=== PATIENT | female | born 1990 | race African-American/Black ===

== ENCOUNTER 2016-11-15 09:39 | Emergency (ER) | payer SELFPAY ==
--- NOTE | 2016-11-15 10:40 | ER Document Report ---
HPI - HPI Patient complains to provider of: cough, congestion Onset: Other - several days Onset/Duration: Gradual Quality of pain: Achy Pain Level: 4 Context: 25 yo female with cough, congestion, bodyaches for several days. NO fever or chills. No chest pain or SOB. Associated Symptoms: None Exacerbated by: Denies Relieved by: Denies Similar symptoms previously: Yes Recently seen / treated by doctor: No - ROS ROS below otherwise negative: Yes Systems Reviewed and Negative: Yes All other systems reviewed and negative - CARDIOVASCULAR Cardiovascular: DENIES: Chest pain - REPRODUCTIVE Reproductive: DENIES: : - DERM Skin Color: Normal Past Medical History - General Information source: Patient - Social History Smoking Status: Never Smoker Chew tobacco use (# tins/day): No Frequency of alcohol use: None Drug Abuse: None Lives with: Family Family History: Reviewed & Not Pertinent Patient has suicidal ideation: No Patient has homicidal ideation: No Renal/ Medical History: Denies: Hx Peritoneal Dialysis GI Medical History: Reports: Hx Gastroesophageal Reflux Disease - ON MEDICATION , NAME AND DOSE UNKNOWN Past Surgical History: Reports: Hx Section - Immunizations Immunizations up to date: Yes Hx Diphtheria, Pertussis, Tetanus Vaccination: Yes Vertical Provider Document - CONSTITUTIONAL Agree With Documented VS: Yes Exam Limitations: No Limitations General Appearance: No Apparent Distress - INFECTION CONTROL TRAVEL OUTSIDE OF THE [place] IN LAST 30 DAYS: No - HEENT HEENT: Conjuctival Injection, Pharyngeal Erythema. negative: Tympanic Membrane Red - NECK Neck: Supple. negative: Lymphadenopathy-Left, Lymphadenopathy-Right - RESPIRATORY Respiratory: Breath Sounds Normal, No Respiratory Distress O2 Sat by Pulse Oximetry: 98 - CARDIOVASCULAR Cardiovascular: Regular Rate, Regular Rhythm - GI/ABDOMEN Gastrointestinal: Abdomen Soft, Abdomen Non-Tender - MUSCULOSKELETAL/EXTREMETIES Musculoskeletal/Extremeties: MAEW, FROM - NEURO Level of Consciousness: Awake, Alert, Appropriate - DERM Integumentary: Warm, Dry, No Rash Course - Vital Signs Vital signs: Temp Pulse Resp BP Pulse Ox 97.9 F 91 16 140/94 H 98 11/15/16 10:28 11/15/16 10:28 11/15/16 10:28 11/15/16 10:28 11/15/16 10:28 Discharge - Discharge Clinical Impression: Upper respiratory infection Qualifiers: URI type: unspecified viral URI Qualified Code(s): J06.9 - Acute upper respiratory infection, unspecified Condition: Good Disposition: HOME, SELF-CARE Instructions: Sore Throat ([facility]), Upper Respiratory Illness ([facility]) Additional Instructions: Plenty of fluids Rest Rapid strep is pending call me at [phone] in one hour for the result. If the strep is positive I can call in a penicillin prescription for you. Please complete the patient satisfaction survey if you get one, and return it.. If you do not receive a survey, then you can go to the [facility] website, [email or web address] and place your comments about your very good care. Thank you very much. It was a pleasure being your medical provider today. Forms: Return to Work
[2016-11-15 10:53] VITALS: BP 140/92
== END 2016-11-15 10:54 | disposition home or self-care (01) ==
LOC: ER 09:39
DX: J06.9 Acute upper respiratory infection, unspecified (principal); B97.89 Other viral agents as the cause of diseases classified elsewhere; R05 Cough; R52 Pain, unspecified
CPT/HCPCS: 87070; 87880; 99283

== ENCOUNTER 2018-01-07 11:53 | Emergency (ER) | payer SELFPAY ==
[2018-01-07] MEDS ORDERED: ONDANSETRON 4 MG TAB.RAPDIS PO ONE (13:26)
[2018-01-07] MEDS ORDERED: IBUPROFEN 800 MG TABLET PO ONE (13:26)
--- NOTE | 2018-01-07 13:29 | ER Document Report ---
ED GI/ - General Chief Complaint: Urinary Problem Stated Complaint: HEADACHE,DIZZINESS,ABDOMINAL PAIN Time Seen by Provider: 01/07/18 12:45 Mode of Arrival: Ambulatory Information source: Patient Notes: 27-year-old female presented ED for urinary frequency urgency and hesitancy. She said there is a very sharp pain at the end of the urine. She states she is also been lightheaded when she stands for more than 10 minutes. She states she also has a headache but she has not had any appetite and has not been eating. Her last menstrual period was 12/31/2017. She is alert oriented walking with a even steady gait pupils equal and react to light speaking in full sentences. TRAVEL OUTSIDE OF THE [place] IN LAST 30 DAYS: No - HPI Patient complains to provider of: Other - Urinary frequency urgency pain with no bleeding. She states she is also been a little lightheaded yesterday and today with a headache and a decreased appetite. Onset: Other - 2 days Timing/Duration: Gradual Quality of pain: Sharp Severity at maximum: Moderate Severity in ED: Moderate Pain Level: 4 Location: Suprapubic Vaginal bleeding (Compared to normal period): None LMP: 12/31/2017 Associated symptoms: Lightheaded, Urinary hesitancy, Urinary frequency, Other - Headache Exacerbated by: Denies Relieved by: Denies Similar symptoms previously: Yes Recently seen / treated by doctor: No - Related Data Allergies/Adverse Reactions: No Known Allergies Allergy (Verified 01/07/18 11:53) Past Medical History - General Information source: Patient - Social History Smoking Status: Never Smoker Cigarette use (# per day): No Chew tobacco use (# tins/day): No Smoking Education Provided: No Frequency of alcohol use: None Drug Abuse: None Lives with: Family Family History: Reviewed & Not Pertinent Patient has suicidal ideation: No Patient has homicidal ideation: No - Past Medical History Cardiac Medical History: Reports: None Pulmonary Medical History: Reports: None EENT Medical History: Reports: None Neurological Medical History: Reports: None Endocrine Medical History: Reports: None Renal/ Medical History: Reports: None Malignancy Medical History: Reports: None GI Medical History: Reports: Hx Gastroesophageal Reflux Disease - ON MEDICATION , NAME AND DOSE UNKNOWN Musculoskeltal Medical History: Reports None Skin Medical History: Reports None Psychiatric Medical History: Reports: None Traumatic Medical History: Reports: None Infectious Medical History: Reports: None Past Surgical History: Reports: Hx Section - Immunizations Immunizations up to date: Yes Hx Diphtheria, Pertussis, Tetanus Vaccination: Yes Review of Systems - Review of Systems Constitutional: No symptoms reported EENT: No symptoms reported Cardiovascular: No symptoms reported Respiratory: No symptoms reported Gastrointestinal: No symptoms reported Genitourinary: Frequency, Pain, Urgency Female Genitourinary: No symptoms reported Musculoskeletal: No symptoms reported Skin: No symptoms reported Hematologic/Lymphatic: No symptoms reported Neurological/Psychological: Headaches -: Yes All other systems reviewed and negative Physical Exam - Vital signs Vitals: Temp Resp BP 98.8 F 18 127/73 H 01/07/18 12:10 01/07/18 12:10 01/07/18 12:10 Interpretation: Normal - General General appearance: Appears well, Alert - HEENT Head: Normocephalic, Atraumatic Eyes: Normal Pupils: PERRL Visual moore normal: Yes Ears: Normal External canal: Normal Tympanic membrane: Normal Sinus: Normal Nasal: Normal Mouth/Lips: Normal Mucous membranes: Normal Pharynx: Normal Neck: Normal - Respiratory Respiratory status: No respiratory distress Chest status: Nontender Breath sounds: Normal Chest palpation: Normal - Cardiovascular Rhythm: Regular Heart sounds: Normal auscultation Murmur: No - Abdominal Inspection: Normal Distension: No distension Bowel sounds: Normal Tenderness: Tender, McBurney's point - suprapubic Organomegaly: No organomegaly - Back Back: Normal, Nontender - Extremities General upper extremity: Normal inspection, Nontender, Normal color, Normal ROM , Normal temperature General lower extremity: Normal inspection, Nontender, Normal color, Normal ROM , Normal temperature, Normal weight bearing. No: Kristy's sign - Neurological Neuro grossly intact: Yes Cognition: Normal Orientation: AAOx4 Raul Coma Scale Eye Opening: Spontaneous Raul Coma Scale Verbal: Oriented [place] Coma Scale Motor: Obeys Commands [place] Coma Scale Total: 15 Speech: Normal Cranial nerves: Normal Cerebellar coordination: Normal Motor strength normal: LUE, RUE, LLE, RLE Additional motor exam normals: Equal director of staff development Babinski reflex: Normal (flexor plantar) Sensory: Normal Knee - Reflex grade: 2 = Normal Ankle - Reflex grade: 2 = Normal - Psychological Associated symptoms: Normal affect, Normal mood - Skin Skin Temperature: Warm Skin Moisture: Dry Skin Color: Normal Course - Vital Signs Vital signs: Temp Pulse Resp BP Pulse Ox 98.8 F 81 16 124/72 99 01/07/18 12:10 01/07/18 14:50 01/07/18 14:50 01/07/18 14:50 01/07/18 14:50 - Laboratory Laboratory results interpreted by me: 01/07/18 13:17 Urine Protein 100 H Urine Blood SMALL H Urine Urobilinogen 2.0 H Ur Leukocyte Esterase LARGE H Discharge - Discharge Clinical Impression: UTI (urinary tract infection) Qualifiers: Urinary tract infection type: site unspecified Hematuria presence: with hematuria Qualified Code(s): N39.0 - Urinary tract infection, site not specified Condition: Stable Disposition: HOME, SELF-CARE Instructions: Family Physicians / Practices Additional Instructions: URINARY TRACT INFECTION: Your evaluation indicates that you have a urinary tract infection. This is due to germs growing in the bladder. This is a common problem. This infection usually responds quickly to antibiotics. Your antibiotic should be taken exactly as prescribed. Drink plenty of fluids -- three to four quarts a day. Occasionally, a bladder anesthetic will be prescribed to help stop the feeling of urgency until the antibiotic has a chance to clear the infection. This may cause your urine to be dark orange. Certain urine infections require a culture. If the doctor obtained a culture, the results will be back in two days. You should call to see if a change in treatment is needed. A repeat urinalysis after you finish treatment is often recommended. The physician will let you know if further testing is required. Call the doctor if you develop fever, chills, flank pain, inability to urinate, or blood in the urine. TRIMETHOPRIM-SULFA: You have been given a prescription for trimethoprim-sulfa (TMS, Septra, Bactrim). This is a combination antibiotic of the sulfa class, often used for urinary tract infections, middle ear infections, bronchitis, shigella intestinal infection, and Pneumocystis pneumonia. TMS is usually well-tolerated. Occasional side effects include nausea and decreased appetite. Septra is not recommended for infants less than two months of age. Do not take this medication if you have experienced severe side effects or allergy to sulfa medicine. You should stop this medicine at once and contact your physician if you develop any rash, joint pain, shortness of breath, bruising, or jaundice ( yellow color in the skin), or if you develop any other new or unusual symptoms. URINARY ANESTHETIC AGENT: You have been given a medication (Pyridium) for urinary tract discomfort. This medicine numbs the lining of the bladder and urethra, resulting in less pain, burning, and urgency. You may take it as needed, according to instructions. When the symptoms resolve, you can stop this medication (be sure to continue any other medications the doctor has given you). This medicine turns the urine a dark orange. It may stain underwear. Occasionally, it can cause nausea. Return for evaluation if there are any unexpected effects, such as itching, hives, or shortness of breath. FOLLOW-UP CARE: If you have been referred to a physician for follow-up care, call the physician s office for an appointment as you were instructed or within the next two days. If you experience worsening or a significant change in your symptoms, notify the physician immediately or return to the Emergency Department at any time for re-evaluation. Prescriptions: Phenazopyridine HCl [Pyridium 200 mg Tablet] 200 mg PO TID #15 tablet Sulfamethoxazole/Trimethoprim [Septra-Ds 800-160 mg Tablet] 1 tab PO BID #20 tablet Forms: Parent Work Note
[2018-01-07 13:49] LABS: APPEARANCE,URINE CLOUDY; BILIRUBIN,URINE NEGATIVE (NEGATIVE); COLOR,URINE AMBER; GLUCOSE, URINE NEGATIVE (NEGATIVE); KETONES,URINE NEGATIVE (NEGATIVE); LEUKOCYTE ESTERASE,URINE LARGE (NEGATIVE); NITRITE,URINE NEGATIVE (NEGATIVE); PROTEIN,URINE 100 mg/dL (NEGATIVE); TRIPLE PHOSPHATE CRYSTAL,URINE RARE /HPF
[2018-01-07 14:52] VITALS: BP 124/72
== END 2018-01-07 14:47 | disposition home or self-care (01) ==
LOC: ER 11:53
DX: N39.0 Urinary tract infection, site not specified (principal); R51 Headache; R42 Dizziness and giddiness; R10.9 Unspecified abdominal pain; R35.0 Frequency of micturition; R39.11 Hesitancy of micturition; R30.9 Painful micturition, unspecified; R63.0 Anorexia
CPT/HCPCS: 99283; 87086; 81025; 87088; 81001; 87186; S0119

== ENCOUNTER 2018-07-17 08:38 | Emergency (ER) | payer SELFPAY ==
[2018-07-17] MEDS ORDERED: METHOCARBAMOL 750 MG TABLET PO ONE (09:41)
[2018-07-17] MEDS ORDERED: LIDOCAINE 5% (700 MG) TRANSDERMAL ADH..PATCH TP ONE (09:41)
[2018-07-17] MEDS ORDERED: KETOROLAC TROMETHAMINE 60 MG/2 ML SDV IM ONE (09:41)
--- NOTE | 2018-07-17 09:44 | ER Document Report ---
HPI - HPI Time Seen by Provider: 07/17/18 09:26 Pain Level: 4 Notes: Patient is an otherwise healthy 27-year-old female who presents with chief complaint of low back pain that radiates to the left hip. Patient denies any injury however she does state that she almost fell last week and she believes when she caught herself she pulled a muscle. Patient denies any bowel incontinence, reports she is able to urinate without difficulty and denies any saddle anesthesia. Patient has not had any fever or any other symptoms. Patient able to ambulate with a steady gait. - REPRODUCTIVE Reproductive: DENIES: : Past Medical History - Social History Smoking Status: Never Smoker Chew tobacco use (# tins/day): No Frequency of alcohol use: None Drug Abuse: None Family History: Reviewed & Not Pertinent Patient has suicidal ideation: No Patient has homicidal ideation: No Renal/ Medical History: Denies: Hx Peritoneal Dialysis GI Medical History: Reports: Hx Gastroesophageal Reflux Disease - ON MEDICATION , NAME AND DOSE UNKNOWN. Denies: Hx Hiatal Hernia, Hx Ulcer Musculoskeletal Medical History: Denies Hx Fibromyalgia Traumatic Medical History: Denies: Hx Fractures Past Surgical History: Reports: Hx Section - X2 - Immunizations Immunizations up to date: Yes Hx Diphtheria, Pertussis, Tetanus Vaccination: Yes Vertical Provider Document - CONSTITUTIONAL Notes: PHYSICAL EXAMINATION: GENERAL: Well-appearing, well-nourished and in no acute distress. HEAD: Atraumatic, normocephalic. EYES: Pupils equal round extraocular movements intact, conjunctiva are normal. ENT: Nares patent NECK: Normal range of motion LUNGS: No respiratory distress Musculoskeletal: Normal range of motion, tenderness to palpation along left lumbar paraspinous muscles. No vertebral tenderness. NEUROLOGICAL: Normal speech, normal gait. PSYCH: Normal mood, normal affect. SKIN: Warm, Dry, normal turgor, no rashes or lesions noted. - INFECTION CONTROL TRAVEL OUTSIDE OF THE [place] IN LAST 30 DAYS: No Course - Re-evaluation Re-evalutation: Physical examination is consistent with musculoskeletal strain. Will place patient on Lidoderm patches and Robaxin. - Vital Signs Vital signs: Temp Pulse Resp BP Pulse Ox 98.5 F 76 16 146/85 H 95 07/17/18 08:44 07/17/18 08:44 07/17/18 08:44 07/17/18 08:44 07/17/18 08:44 Discharge - Discharge Clinical Impression: Musculoskeletal strain Condition: Stable Disposition: HOME, SELF-CARE Additional Instructions: Muscle Strain You have strained a muscle -- torn the fibers within the muscle. This often occurs with strenuous exertion, or during an injury that suddenly stretches the muscle. The seriousness of a strain varies. Some strains heal within days, others cause problems for months. X-rays cannot show a muscle strain. X-rays are taken only if symptoms suggest that a fracture could be present. The usual treatment of a muscle strain is rest and ice packs. Sometimes, a sling, splint, or crutches may be necessary to rest the muscle. The muscle can be used again once pain subsides. Severe strains require a special exercise and stretching program to prevent permanent stiffness and disability. Your doctor will advise you if this will be necessary. Call the doctor immediately if pain or swelling becomes severe, or if numbness or discoloration develop. Is most likely that your pain is being caused by musculoskeletal strain. I would like you to take ibuprofen 600 mg every 6 hours. Take the Robaxin and Lidoderm patches as prescribed. Follow-up with your primary care provider if your pain is not improving over the next 7-10 days. You may also apply ice and/ or moist heat to the area. Prescriptions: Lidocaine [Lidoderm 5% (700 mg) Transdermal Patch] 1 patch TP DAILY #30 adh..patch Methocarbamol [Robaxin 500 mg Tablet] 500 mg PO QID #30 tablet Forms: Return to Work
[2018-07-17 10:41] VITALS: BP 134/81
== END 2018-07-17 10:41 | disposition home or self-care (01) ==
LOC: ER 08:38
DX: M54.5 Low back pain (principal); M25.552 Pain in left hip
CPT/HCPCS: 99283; 96372; J1885; J3490

== ENCOUNTER → 2018-11-03 | Outpatient (CLI) | payer SELFPAY ==
--- NOTE | 2018-11-03 15:30 | RADIOLOGY REPORT (SQ) ---
EXAM DESCRIPTION: U/S [id number] TRNABD 1GES W/ODOP COMPLETED DATE/TIME: 11/03/2018 3:10 pm REASON FOR STUDY: Z34.81 ENCOUNTER FOR SUPRVSN OF NORMAL , FIRST TRIMESTER Z34.81 ENCOUNTE R FOR SUPRVSN OF NORMAL , FIRST TRIM COMPARISON: None. TECHNIQUE: Transvaginal and transabdominal static and realtime grayscale images acquired of the pelv is. Additional selected spectral and color Doppler images recorded. All images stored on PACs. bHCG: Not available. CLINICAL DATES: DARNELL: 06/12/2019. EGA: 8 weeks 3 days LIMITATIONS: None. FINDINGS: FETUS: Single Living intrauterine . ULTRASOUND EGA: 8 weeks 4 days ULTRASOUND DARNELL: 06/11/2019 EFW: Not applicable less than 20 weeks. CRL: 2.0 cm FHR: 178 beats per minute. SURVEY: Too early to access. AMNIOTIC FLUID: Adequate amount. PLACENTA: Not yet developed due to early gestation. SUBCHORIONIC BLEED: No. SIZE OF BLEED: Not applicable. UTERUS: The uterus measures 10.3 x 7.7 x 5.7 cm. No masses. No anomalies. CERVICAL LENGTH: 3.4 cm Closed. RIGHT ADNEXA: The right ovary is not visualized due to overlying bowel gas. LEFT ADNEXA: The left ovary measures 2.9 x 3.2 x 3.1 cm. Normal vascular flow. A 2.7 x 2.6 x 2.1 cm corpus luteum cyst of . FREE FLUID: None. OTHER: No other significant finding. IMPRESSION: LIVING INTRAUTERINE . EGA: 8 weeks 4 days Trimester of : First - 0 to 13 weeks. TECHNICAL DOCUMENTATION: JOB ID: [id number]- All Rights Reserved rev-01/02 Reading location - IP/workstation name: [email or web address]
== END ==
LOC: RAD 15:12
PROVIDERS: ATTEND Midwife
DX: Z34.81 Encounter for supervision of other normal pregnancy, first trimester (principal)
CPT/HCPCS: 76801

== ENCOUNTER → 2018-12-22 | Outpatient (CLI) | payer MEDICAID ==
[2018-12-25 00:36] LABS: AFP MOM 2 1.04 (.); DSR (BY AGE) 1 IN 820 (.); HCG MOM 1 1.25 (.); HCG VALUE 1 47827 mIU/mL (.); INSULIN DEPENDENT DIABETES No (.); OSBR RISK (1 IN) 10000 (.); T18RISK Not increased (.)
== END ==
LOC: OD 10:44
PROVIDERS: ATTEND Midwife
DX: Z34.82 Encounter for supervision of other normal pregnancy, second trimester (principal); Z36.0 Encounter for antenatal screening for chromosomal anomalies
CPT/HCPCS: 36415; 82105; 82677; 84702; 86336

== ENCOUNTER 2019-05-10 10:50 | Outpatient (CLI) | payer MEDICAID ==
--- NOTE | 2019-05-10 11:33 | Non Stress Test Report ---
Non Stress Test Datetime Report Generated by CPN: 05/10/2019 11:33 DEMOGRAPHIC EGA NST: 35.2 INDICATION Indication for Study: Diabetes Mellitus; Ordered by Provider Indication for Study (NST) Other: repeat from office VITAL SIGNS Temperature - NST: 97.5 Pulse - NST: 92 RESP - NST: 16 NBPSYS NST: 152 NBPDIA NST: 79 MONITORING Monitor Explained: Monitor Explained; Test Explained; Patient Verbalized Understanding Time on Monitor: 05/10/2019 10:59 Time off Monitor: 05/10/2019 11:22 NST Duration: 23 NST INTERVENTIONS NST Interventions: None Physician Notified NST: J Silva CNM BABY A: [id number] BABY A Movement : Present Contraction Frequency : 0 FHR Baseline : 125 Accelerations : 15X15 Decelerations : None Variability : Moderate 6-25bpm NST Review: Meets Criteria for Reactive NST NST Review and Verified By : Mohit Sales RN NST Results: Reactive NST REPORT Report Trigger: Send Report
== END 2019-05-10 11:27 | disposition home or self-care (01) ==
LOC: LC 10:50
PROVIDERS: ATTEND Obstetrics & Gynecology
PROC: 4A1HXCZ Monitoring of Products of Conception, Cardiac Rate, External Approach (ICD-10-PCS; principal; 2019-05-10)
DX: O24.419 Gestational diabetes mellitus in pregnancy, unspecified control (principal); Z3A.35 35 weeks gestation of pregnancy
CPT/HCPCS: 59025

== ENCOUNTER 2019-06-07 05:52 | Inpatient (IN) | payer MEDICAID ==
[2019-06-04 10:46] LABS: APPEARANCE,URINE SLIGHTLY-CLOUDY; BILIRUBIN,URINE NEGATIVE (NEGATIVE); COLOR,URINE YELLOW; GLUCOSE, URINE NEGATIVE (NEGATIVE); KETONES,URINE NEGATIVE (NEGATIVE); LEUKOCYTE ESTERASE,URINE NEGATIVE (NEGATIVE); NITRITE,URINE NEGATIVE (NEGATIVE); PROTEIN,URINE 30 mg/dL (NEGATIVE); URINE SPECIFIC GRAVITY 1.027
[2019-06-04 11:10] LABS: ABSOLUTE EOSINOPHILS # (AUTO) 0.1 10^3/uL (0.0-0.6); ABSOLUTE LYMPHOCYTES (AUTO) 1.4 10^3/uL (0.5-4.7); ABSOLUTE MONOCYTES (AUTO) 0.4 10^3/uL (0.1-1.4); ABSOLUTE NEUT (AUTO) 6.8 10^3/uL (1.7-8.2); BASOPHILS % (AUTO) 0.1 % (0-2); EOSINOPHILS % (AUTO) 0.6 % (0-6); HEMATOCRIT 32.2 % (36.0-47.0); HEMOGLOBIN 10.5 g/dL (12.0-15.5); LYMPHOCYTES % (AUTO) 16.3 % (13-45); MEAN CORPUSCULAR HEMOGLOBIN 26.3 pg (27.0-33.4); MEAN CORPUSCULAR HGB CONC 32.6 g/dL (32.0-36.0); MEAN CORPUSCULAR VOLUME 81 fl (80-97); MONOCYTES % (AUTO) 4.8 % (3-13); PLATELET COUNT 214 10^3/uL (150-450); RED BLOOD COUNT 3.99 10^6/uL (3.72-5.28); RED CELL DISTRIBUTION WIDTH 14.3 % (11.5-14.0); SEGMENTED NEUTROPHILS % (AUTO) 78.2 % (42-78); TOTAL CELLS COUNTED % (AUTO) 100 %; WHITE BLOOD COUNT 8.7 10^3/uL (4.0-10.5)
[2019-06-04 11:14] LABS: URINE AMPHETAMINES SCREEN NEGATIVE; URINE BARBITURATES SCREEN NEGATIVE; URINE BENZODIAZEPINES SCREEN NEGATIVE; URINE COCAINE SCREEN NEGATIVE; URINE MARIJUANA (THC) SCREEN NEGATIVE; URINE METHADONE SCREEN NEGATIVE; URINE PHENCYCLIDINE SCREEN NEGATIVE
[2019-06-04 11:16] LABS: URINE CREATININE 296.4 mg/dL (16-327); URINE PROTEIN 7.8 mg/dL (<12)
[2019-06-04 11:34] LABS: ALBUMIN 3.5 g/dL (3.5-5.0); ALKALINE PHOSPHATASE 133 U/L (38-126); ANION GAP 9 (5-19); ASPARTATE AMINO TRANSFERASE 15 U/L (14-36); BILIRUBIN,DIRECT 0.1 mg/dL (0.0-0.4); BILIRUBIN,TOTAL 0.3 mg/dL (0.2-1.3); BLOOD UREA NITROGEN 9 mg/dL (7-20); CALCIUM 8.8 mg/dL (8.4-10.2); CARBON DIOXIDE 24 mmol/L (22-30); CHLORIDE 104 mmol/L (98-107); GLUCOSE 97 mg/dL (75-110); POTASSIUM 3.6 mmol/L (3.6-5.0); TOTAL PROTEIN 6.5 g/dL (6.3-8.2); URIC ACID 3.7 mg/dL (2.5-6.2)
[2019-06-04 12:18] LABS: CHLAM PCR NOT DETECTED (NOT DETECT)
[2019-06-07] MEDS ORDERED: RINGERS SOLUTION,LACTATED 1,000 ML IV PRN ×2 (06:19→08:54)
[2019-06-07] MEDS ORDERED: CEFAZOLIN 2 GM/D5W RTU 2 GM/50 ML RTUPB IV ONE (06:30)
[2019-06-07] MEDS ORDERED: CEFAZOLIN INJ 1 GM VIAL ONE (07:03)
[2019-06-07] MEDS ORDERED: ACETAMINOPHEN 1,000 MG/100 ML RTUPB IV ONE (07:24)
[2019-06-07] MEDS ORDERED: METHYLERGONOVINE MALEATE INJ/PF 0.2 MG/1 ML AMPULE ONE (07:24)
[2019-06-07] MEDS ORDERED: ONDANSETRON HCL INJ/PF 4 MG/2 ML SDV ONE (07:24)
[2019-06-07] MEDS ORDERED: OXYTOCIN 10 UNIT/ML VIAL ONE (07:24)
[2019-06-07] MEDS ORDERED: EPHEDRINE SULFATE INJ 50 MG/1 ML AMPULE ONE (07:24)
[2019-06-07] MEDS ORDERED: KETOROLAC TROMETHAMINE 60 MG/2 ML SDV ONE (07:24)
[2019-06-07] MEDS ORDERED: MIDAZOLAM 2 MG/2 ML INJ ONE (07:24)
[2019-06-07] MEDS ORDERED: FENTANYL CITRATE INJ/PF 100 MCG/2 ML AMPUL ONE (07:24)
[2019-06-07] MEDS ORDERED: PROMETHAZINE HCL INJ 25 MG/1 ML VIAL IV PRN ×3 (08:12→08:54)
[2019-06-07] MEDS ORDERED: OXYCODONE-ACETAMINOPHEN 5-325 MG TABLET PO PRN ×4 (08:12→08:54)
[2019-06-07] MEDS ORDERED: ONDANSETRON HCL INJ/PF 4 MG/2 ML SDV IV PRN (08:12)
[2019-06-07] MEDS ORDERED: MEPERIDINE HCL/PF INJ 25 MG/1 ML DISP.SYRIN IV PRN (08:12)
[2019-06-07] MEDS ORDERED: DIPHENHYDRAMINE HCL 50 MG/ML VIAL IV PRN (08:12)
[2019-06-07] MEDS ORDERED: MORPHINE SULFATE 10 MG/ML INJ IV PRN (08:12)
[2019-06-07] MEDS ORDERED: FENTANYL CITRATE INJ/PF 100 MCG/2 ML AMPUL IV PRN ×3 (08:12)
--- NOTE | 2019-06-07 08:52 | Operative Report ---
Operative Report DATE OF SURGERY: 06/07/19 PREOPERATIVE DIAGNOSIS: Repeat C/S, Undesired Fertility OPERATION: Scar REvision, Repeat Section, [facility] BTL ANESTHESIA: Spinal INTRAOPERATIVE FINDINGS: IVF 1300ml, UOP 100ml
[2019-06-07] MEDS ORDERED: ACETAMINOPHEN 1,000 MG/100 ML RTUPB IV PRN (08:54)
[2019-06-07] MEDS ORDERED: ACETAMINOPHEN 325 MG TABLET PO PRN (08:54)
[2019-06-07] MEDS ORDERED: HYDROMORPHONE HCL INJ/PF 2 MG/ML AMPULE IV PRN (08:54)
[2019-06-07] MEDS ORDERED: SIMETHICONE 80 MG TAB.CHEW PO PRN (08:54)
[2019-06-07] MEDS ORDERED: DIPH/PERTUSS(ACELL)/TETANUS VAC/PF 0.5 ML SYR (>=10YO) IM PRN (08:54)
[2019-06-07] MEDS ORDERED: MEASLES,MUMPS&RUBELLA VACC/PF 0.5 ML VIAL SUBCUT PRN (08:54)
[2019-06-07] MEDS ORDERED: OXYTOCIN/NORMAL SALINE 20 UNIT/1,000 ML RTUINJ IV PRN (08:54)
[2019-06-07] MEDS ORDERED: OXYCODONE-ACETAMINOPHEN 5-325 MG TABLET ONE (10:24)
[2019-06-07] MEDS ORDERED: LABETALOL HCL INJ 20 MG/4 ML DISP.SYRIN IV ONE ×2 (10:48→11:30)
[2019-06-07] MEDS: DOCUSATE SODIUM 100 MG CAPSULE PO SCH ×2 (12:42→17:40)
[2019-06-07] MEDS: PRENATAL VITAMIN W DHA CAPSULE PO SCH (12:42)
[2019-06-07] MEDS: KETOROLAC TROMETHAMINE INJ/PF 30 MG/1 ML SDV IV SCH ×2 (13:08→22:01)
[2019-06-07] MEDS: NIFEDIPINE 30 MG TAB.ER.24 PO SCH ×2 (13:08→22:01)
[2019-06-08] MEDS: KETOROLAC TROMETHAMINE INJ/PF 30 MG/1 ML SDV IV SCH (05:46)
[2019-06-08 08:18] LABS: HEMATOCRIT 31.2 % (36.0-47.0); MEAN CORPUSCULAR HEMOGLOBIN 26.1 pg (27.0-33.4); MEAN CORPUSCULAR HGB CONC 32.2 g/dL (32.0-36.0); MEAN CORPUSCULAR VOLUME 81 fl (80-97); PLATELET COUNT 208 10^3/uL (150-450); RED BLOOD COUNT 3.85 10^6/uL (3.72-5.28); RED CELL DISTRIBUTION WIDTH 14.5 % (11.5-14.0); WHITE BLOOD COUNT 14.1 10^3/uL (4.0-10.5)
[2019-06-08] MEDS: IBUPROFEN 800 MG TABLET PO SCH ×4 (09:53→23:43)
[2019-06-08] MEDS: FUROSEMIDE 20 MG TABLET PO SCH (09:55)
[2019-06-08] MEDS: PRENATAL VITAMIN W DHA CAPSULE PO SCH (09:56)
[2019-06-08] MEDS: DOCUSATE SODIUM 100 MG CAPSULE PO SCH ×2 (09:56→17:20)
[2019-06-08] MEDS: NIFEDIPINE 30 MG TAB.ER.24 PO SCH (09:56)
--- NOTE | 2019-06-08 11:30 | PDOC PROGRESS REPORT ---
Subjective-OB Progress Note for:: 06/08/19 Subjective: reports bleeding slowing, pain controlled with current meds. denies needs. +passing gas Physical Exam (OB) Vital Signs: Temp Pulse Resp BP Pulse Ox 98.0 F 79 16 140/81 H 97 06/08/19 07:44 06/08/19 07:44 06/08/19 07:44 06/08/19 07:44 06/08/19 07:44 Intake & Output 06/07/19 06/08/19 06/09/19 06:59 06:59 06:59 Output Total 3350 Balance -3350 Weight 120.656 kg - Dressing Removed: No Incision: Draining - serous fluid, no s/s infection, Well Approximated Closure Type: Surgical Glue - Abdomen Description: Tender, Soft Hernia Present: No Fundal Description: Firm, Midline Fundal Height: u/u - u/2 - Abdominal Distension: No distension - Extremities Lower extremities: Kristy's sign - neg Calf: Normal, Nontender Objective-Diagnostic Laboratory: 06/08/19 07:56 06/04/19 10:15 06/08/19 07:56 WBC 14.1 H RBC 3.85 Hgb 10.0 L Hct 31.2 L MCV 81 MCH 26.1 L MCHC 32.2 RDW 14.5 H Plt Count 208 Assessment and Plan(PN) - Assessment and Plan (1) Status post section Is this a current diagnosis for this admission?: Yes - Time Spent with Patient Time with patient: Less than 15 minutes Medications reviewed and adjusted accordingly: Yes - Disposition Anticipated Discharge: Home Within: within 48 hours
[2019-06-08] MEDS ORDERED: INFLUENZA QUAD (6MOS+) 2019-20 VAC 0.5 ML SYR IM ONE (15:00)
[2019-06-09] MEDS: IBUPROFEN 800 MG TABLET PO SCH ×2 (06:05→13:31)
--- NOTE | 2019-06-09 09:37 | PDOC DISCHARGE SUMMARY ---
Impression - Admit/DC Date/PCP Admission Date/Primary Care Provider: 06/07/19 05:52 HUMZA LANGLEY CNM Discharge Date: 06/09/19 - POD#3, doing well, UOB, no complaints, O+. 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 Is this a current diagnosis for this admission?: Yes (3) Status post section Is this a current diagnosis for this admission?: Yes (4) Sterilization Is this a current diagnosis for this admission?: Yes - Additional Information Resuscitation Status: Full Code Discharge Diet: As Tolerated, Regular Discharge Activity: Activity As Tolerated, No Driving, No Lifting Over 10 Pounds, Pelvic Rest Referrals: HUMZA LANGLEY CNM [Primary Care Provider] - Prescriptions: Ibuprofen [Motrin 800 mg Tablet] 800 mg PO Q6 #60 tablet Oxycodone HCl/Acetaminophen [Percocet 5-325 mg Tablet] 1 tab PO Q4HP PRN #30 tablet PRN Reason: Pain Scale Of 4 Home Medications: No122/Iron/Folic Acid [ Multi Tablet] 1 tab PO DAILY 05/10/19 Ibuprofen [Motrin 800 mg Tablet] 800 mg PO Q6 #60 tablet 06/09/19 Oxycodone HCl/Acetaminophen [Percocet 5-325 mg Tablet] 1 tab PO Q4HP PRN #30 tablet 06/09/19 HPI Reason(s) for Admission: Ceasarean Section-Repeat Intrapartum Procedure(s): : Low Cervical, Transverse, Tubal Ligation Hospital Course Hospital Course: routine Results Laboratory Results: WBC 14.1 10^3/uL (4.0-10.5) H 06/08/19 07:56 RBC 3.85 10^6/uL (3.72-5.28) 06/08/19 07:56 Hgb 10.0 g/dL (12.0-15.5) L 06/08/19 07:56 Hct 31.2 % (36.0-47.0) L 06/08/19 07:56 MCV 81 fl (80-97) 06/08/19 07:56 MCH 26.1 pg (27.0-33.4) L 06/08/19 07:56 MCHC 32.2 g/dL (32.0-36.0) 06/08/19 07:56 RDW 14.5 % (11.5-14.0) H 06/08/19 07:56 Plt Count 208 10^3/uL (150-450) 06/08/19 07:56 Lymph % (Auto) 16.3 % (13-45) 06/04/19 10:15 [place] % (Auto) 4.8 % (3-13) 06/04/19 10:15 Eos % (Auto) 0.6 % (0-6) 06/04/19 10:15 Baso % (Auto) 0.1 % (0-2) 06/04/19 10:15 Absolute Neuts (auto) 6.8 10^3/uL (1.7-8.2) 06/04/19 10:15 Absolute Lymphs (auto) 1.4 10^3/uL (0.5-4.7) 06/04/19 10:15 Absolute Monos (auto) 0.4 10^3/uL (0.1-1.4) 06/04/19 10:15 Absolute Eos (auto) 0.1 10^3/uL (0.0-0.6) 06/04/19 10:15 Absolute Basos (auto) 0.0 10^3/uL (0.0-0.2) 06/04/19 10:15 Seg Neutrophils % 78.2 % (42-78) H 06/04/19 10:15 Sodium 136.6 mmol/L (137-145) L 06/04/19 10:15 Potassium 3.6 mmol/L (3.6-5.0) 06/04/19 10:15 Chloride 104 mmol/L (98-107) 06/04/19 10:15 Carbon Dioxide 24 mmol/L (22-30) 06/04/19 10:15 Anion Gap 9 (5-19) 06/04/19 10:15 BUN 9 mg/dL (7-20) 06/04/19 10:15 Creatinine 0.67 mg/dL (0.52-1.25) 06/04/19 10:15 Est GFR ( Amer) > 60 (>60) 06/04/19 10:15 Est GFR (MDRD) Non-Af > 60 (>60) 06/04/19 10:15 Glucose 97 mg/dL (75-110) 06/04/19 10:15 Uric Acid 3.7 mg/dL (2.5-6.2) 06/04/19 10:15 Calcium 8.8 mg/dL (8.4-10.2) 06/04/19 10:15 Total Bilirubin 0.3 mg/dL (0.2-1.3) 06/04/19 10:15 Direct Bilirubin 0.1 mg/dL (0.0-0.4) 06/04/19 10:15 Neonat Total Bilirubin Not Reportable 06/04/19 10:15 Neonat Direct Bilirubin Not Reportable 06/04/19 10:15 Neonat Indirect Bili Not Reportable 06/04/19 10:15 AST 15 U/L (14-36) 06/04/19 10:15 ALT 8 U/L (<35) 06/04/19 10:15 Alkaline Phosphatase 133 U/L (38-126) H 06/04/19 10:15 Lactate Dehydrogenase 149 U/L (120-246) 06/04/19 10:15 Total Protein 6.5 g/dL (6.3-8.2) 06/04/19 10:15 Albumin 3.5 g/dL (3.5-5.0) 06/04/19 10:15 Urine Color YELLOW 06/04/19 10:10 Urine Appearance SLIGHTLY-CLOUDY 06/04/19 10:10 Urine pH 6.0 (5.0-9.0) 06/04/19 10:10 Ur Specific [place] 1.027 06/04/19 10:10 Urine Protein 30 mg/dL (NEGATIVE) H 06/04/19 10:10 Urine Glucose (UA) NEGATIVE mg/dL (NEGATIVE) 06/04/19 10:10 Urine Ketones NEGATIVE mg/dL (NEGATIVE) 06/04/19 10:10 Urine Blood LARGE (NEGATIVE) H 06/04/19 10:10 Urine Nitrite NEGATIVE (NEGATIVE) 06/04/19 10:10 Urine Bilirubin NEGATIVE (NEGATIVE) 06/04/19 10:10 Urine Urobilinogen 4.0 mg/dL (<2.0) H 06/04/19 10:10 Ur Leukocyte Esterase NEGATIVE (NEGATIVE) 06/04/19 10:10 Urine WBC (Auto) 2 /HPF 10/18/19 10:10 Urine RBC (Auto) >182 /HPF 06/04/19 10:10 Squamous Epi Cells Auto <1 /HPF 06/04/19 10:10 Urine Mucus (Auto) FEW /LPF 06/04/19 10:10 Urine Creatinine 296.4 mg/dL (16-327) 06/04/19 10:10 Protein/Creatinin Ratio 0.0 mg/mg (0.0-0.2) 06/04/19 10:10 Urine Total Protein 7.8 mg/dL (<12) 06/04/19 10:10 Urine Ascorbic Acid NEGATIVE (NEGATIVE) 06/04/19 10:10 Urine Opiates Screen NEGATIVE 06/04/19 10:10 Urine Methadone Screen NEGATIVE 06/04/19 10:10 Ur Barbiturates Screen NEGATIVE 06/04/19 10:10 Ur Phencyclidine Scrn NEGATIVE 06/04/19 10:10 Ur Amphetamines Screen NEGATIVE 06/04/19 10:10 U Benzodiazepines Scrn NEGATIVE 06/04/19 10:10 Urine Cocaine Screen NEGATIVE 06/04/19 10:10 U Marijuana (THC) Screen NEGATIVE 06/04/19 10:10 Chlamydia DNA (PCR) NOT DETECTED (NOT DETECT) 06/04/19 10:10 N.gonorrhoeae DNA (PCR) NOT DETECTED (NOT DETECT) 06/04/19 10:10 Blood Type O POSITIVE 06/07/19 06:45 Antibody Screen NEGATIVE 06/07/19 06:45 Plan Health Concerns: none Plan of Treatment: d/c to home, f/u with [facility] in one week for an incision check Time Spent: Less than 30 Minutes
[2019-06-09] MEDS: DOCUSATE SODIUM 100 MG CAPSULE PO SCH (09:55)
[2019-06-09] MEDS: PRENATAL VITAMIN W DHA CAPSULE PO SCH (09:55)
[2019-06-09] MEDS: NIFEDIPINE 30 MG TAB.ER.24 PO SCH (10:00)
[2019-06-09] MEDS: FUROSEMIDE 20 MG TABLET PO SCH (10:01)
[2019-06-09 10:59] VITALS: BP 141/68
== END 2019-06-09 14:08 | disposition home or self-care (01) | DRG 784 ==
LOC: 2S 05:52
PROVIDERS: ADMIT Student in an Organized Health Care Education/Training Program; ATTEND Student in an Organized Health Care Education/Training Program
PROC: 0U570ZZ Destruction of Bilateral Fallopian Tubes, Open Approach (ICD-10-PCS; 2019-06-07)
PROC: 10D00Z1 Extraction of Products of Conception, Low, Open Approach (ICD-10-PCS; principal; 2019-06-07 07:45)
PROC: 3E0234Z Introduction of Serum, Toxoid and Vaccine into Muscle, Percutaneous Approach (ICD-10-PCS; 2019-06-09)
PROC: 3E0234Z Introduction of Serum, Toxoid and Vaccine into Muscle, Percutaneous Approach (ICD-10-PCS; 2019-06-09)
DX: O34.211 Maternal care for low transverse scar from previous cesarean delivery (principal); O99.834 Other infection carrier state complicating childbirth; B18.1 Chronic viral hepatitis B without delta-agent; N85.8 Other specified noninflammatory disorders of uterus; O24.420 Gestational diabetes mellitus in childbirth, diet controlled; O13.3 Gestational [pregnancy-induced] hypertension without significant proteinuria, third trimester; Z3A.38 38 weeks gestation of pregnancy; Z37.0 Single live birth; Z30.2 Encounter for sterilization; Z23 Encounter for immunization
CPT/HCPCS: 1961; 36415; 59025; 80053; 80307; 81001; 82570; 83615; 84156; 84550; 85025; 85027; 86850; 86900; 86901; 87491; 87591; 88302; 90686; 90707; 94799; J0131; J1885; J2210; J2250; J2405; J2590; J3010; J3490; J7120

== ENCOUNTER → 2020-02-11 | Outpatient (CLI) | payer MEDICAID | LOC: RDC 15:33 | PROVIDERS: ATTEND Nurse Practitioner Family | DX: Z03.818 Encounter for observation for suspected exposure to other biological agents ruled out (principal) | CPT/HCPCS: 87635; C9803 ==

== ENCOUNTER → 2020-07-14 | Outpatient (CLI) | payer MEDICAID ==
[2020-07-14 10:29] VITALS: BP 117/61
--- NOTE | 2020-07-14 10:29 | ER RDC ASSESSMENT REPORT ---
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 - Symptoms Subjective Fever([place] feverish): No Chills: No Muscule Aches: No Runny Nose: No Sore Throat: No Cough (New or worsening chronic cough): No Shortness of breath: No Nausea or Vomiting: No Headache: No Abdominal Pain: No Diarrhea(3 or more loose stools in last 24 hours): No - Do you have any of the following Chronic lung disease: Asthma or emphysema or COPD: No Cystic Fibrosis: No Diabetes: No High Blood Pressure: No Cardiovascular Disease: No Chronic Kidney Disease: No Chronic Liver Disease: No Chronic blood disorder like Sickle Cell Disease: No Weak immune system due to disease or medication: No Neurologic condition that limits movement: No Developmental delay - Moderate to Severe: No Recent (within past 2 weeks) or current : No Morbid Obesity (>100 pounds over ideal weight): No - Objective Temperature: 98.4 F Pulse Rate: 75 Respiratory Rate: 16 Blood Pressure: 117/61 O2 Sat by Pulse Oximetry: 95 Objective: Patient is a well-appearing 29-year-old female, who presents today for COVID-19 screening. Disposition: Home; Selfcare General - General Stated Complaint: COVID-19 screening Mode of Arrival: Ambulatory Information source: Patient Notes: The patient was evaluated during the global COVID-19 pandemic. That diagnosis was suspected/considered upon initial presentation. Their evaluation, treatment, and testing was consistent with current guidelines for patients who present with complaints or symptoms that may be related to COVID-19. Patient reports having close contact exposure to a COVID-19 lab confirmed positive individual. - HPI Patient complains to provider of: Asymptomatic, no complaint Quality of pain: No pain Severity: None Pain Level: Denies Associated symptoms: None Exacerbated by: Denies Relieved by: Denies Similar symptoms previously: No Recently seen / treated by doctor: No - Related Data Allergies/Adverse Reactions: No Known Allergies Allergy (Verified 05/10/19 11:01) Past Medical History - General Information source: Patient - Social History Smoking Status: Never Smoker Cigarette use (# per day): No Chew tobacco use (# tins/day): No Smoking Education Provided: No Frequency of alcohol use: Occasional Drug Abuse: None Occupation: Housekeeping Lives with: Family Family History: Reviewed & Not Pertinent Patient has suicidal ideation: No Patient has homicidal ideation: No Renal/ Medical History: Denies: Hx Peritoneal Dialysis GI Medical History: Reports: Hx Gastroesophageal Reflux Disease - ON MEDICATION, NAME AND DOSE UNKNOWN. Denies: Hx Hiatal Hernia, Hx Ulcer Musculoskeletal Medical History: Denies Hx Fibromyalgia Traumatic Medical History: Denies: Hx Fractures Past Surgical History: Reports: Hx Section - X2 Physical Exam - General General appearance: Appears well In distress: None Notes: PHYSICAL EXAMINATION: GENERAL: Well-appearing with No Acute Distress noted. HEAD: Atraumatic, Normocephalic. EYES: Sclera anicteric, Conjunctiva are pink and moist. ENT: Nares patent. Moist mucous membranes. NECK: Normal range of motion, supple without lymphadenopathy. LUNGS: CTAB and equal. No wheezes rales or rhonchi. HEART: Regular rate and rhythm without murmurs. ABDOMEN: Soft, nontender, normal bowel sounds, no guarding. EXTREMITIES: Normal range of motion, no pitting edema. No cyanosis. BACK: No midline or CVA tenderness. No step-off or deformity. NEUROLOGICAL: Cranial nerves grossly intact. Normal speech. Normal gait. PSYCH: Calm, Cooperative, and answers questions appropriately. Normal mood and affect. SKIN: Warm, Dry, Normal color and Turgor, No obvious lesions or rash noted. Diagnostic Results Laboratory Results: Patient notified of NEGATIVE results on Rapid Flu (A & B) and Rapid Strep. Advised Throat Culture and COVID testing are PENDING, and they will be notified of any POSITIVE culture results at a later date/time. Patient has been made aware that is currently taking 3 to 5 days for COVID test results, and that [facility] Department will call to notify them of a POSITIVE COVID-19 test results and a member of the [facility] team will call to notify them of a NEGATIVE COVID-19 result. Patient aware they will be notified by phone, whether they have a NEGATIVE or POSITIVE COVID-19 result. Patient Education/Counseling Counseling/Education: Patient presents with upper respiratory symptoms worrisome for possible COVID- 19. Patient does not have symptoms worrisome as an emergency such as difficulty breathing, shortness of breath, chest pain, pressure, confusion or cyanosis. Patient appears suitable for discharge. Patient's vital signs are stable and patient is nontoxic in appearance. Good return precautions have been discussed with patient, patient verbalized understanding and is agreeable with discharge plan of care at this time. Patient provided COVID-19 discharge instructions to include: As a person under investigation for COVID-19, the [facility] Health and Human Services, division of public health advises you to adhere to the following guidance until your test results are reported to you. If your test result is positive, you will receive additional information from your provider and your local health department at that time. Remain at home until you are cleared by the health provider or public health authorities. Keep a log of visitors to your home, notify any visitors to your home of your isolation status. If you plan to move to a new address or leave the county, notify the local health department in your County. Call your doctor or seek care if you have an urgent medical need. Before seeking medical care, call ahead to get instructions from the provider before arriving at the medical office clinic or hospital. Notify them that you are being tested for the virus that causes COVID-19 so that arrangements can be mad e, as necessary, to prevent transmission to others in the healthcare setting. Next, notify the local health department in your county. If a medical emergency arises and you need to call 911, inform dispatch and the first responders that you are being tested for the virus that causes COVID-19. Next, notify the local health department in your county. Guidance for worsening S/SX: For worsening symptoms, patient has been advised to contact their Primary Care Provider, or go to the nearest Emergency Department. RDC Discharge - Discharge Clinical Impression: COVID-19 Screening URI (upper respiratory infection) Qualifiers: URI type: unspecified URI Qualified Code(s): J06.9 - Acute upper respiratory infection, unspecified Condition: Stable Disposition: Home; Selfcare
[2020-07-14 11:28] LABS: A TYPE INFLUENZA AG NEGATIVE (NEGATIVE); B INFLUENZA AG NEGATIVE (NEGATIVE)
== END ==
LOC: RDC 09:52
PROVIDERS: ATTEND Nurse Practitioner Family
DX: U07.1 COVID-19 (principal); J06.9 Acute upper respiratory infection, unspecified; K21.9 Gastro-esophageal reflux disease without esophagitis
CPT/HCPCS: 87070; 87880; 87635; 87804; C9803; 99201; 99211